=== PATIENT | male | born 1995 | race Caucasian/White ===

== ENCOUNTER 2018-09-04 06:44 | Day surgery (SDC) | payer OTHER ==
[2018-09-04] VITALS (14 sets, daily range): BP systolic 110–132; BP diastolic 58–76; PULSE 70–86; RESP 11–31
[~2018-09-04] VITALS: Ht 182.9 cm; Wt 81.2 kg
[2018-09-04] MEDS ORDERED: CEFAZOLIN 1 GM INJ ONE (07:00)
[2018-09-04] MEDS ORDERED: FENTAnyl 50 MCG/ML VIAL ONE (08:06)
[2018-09-04] MEDS ORDERED: MIDAZOLAM 1 MG/ML 2 ML INJ ONE (08:06)
[2018-09-04] MEDS ORDERED: PROPOFOL 40 ML ONE (08:06)
[2018-09-04] MEDS ORDERED: DEXAMETHASONE 4 MG/ML 1 ML INJ ONE (08:06)
[2018-09-04] MEDS ORDERED: ONDANSETRON 4 MG INJ ONE (08:06)
[2018-09-04] MEDS ORDERED: FAMOTIDINE 20 MG INJ ONE (08:07)
--- NOTE | 2018-09-04 08:19 | HPN ---
Date/Time of Note Date/Time of Note DATE: 09/04/18 TIME: 08:19 Interval H&P Admission Note Pt. seen H&P reviewed: No system changes ALEXX STEWART MD Sep 04, 2018 08:19
--- NOTE | 2018-09-04 08:43 | PREAC ---
Date/Time of Note Date/Time of Note DATE: 09/04/18 TIME: 08:41 Anesthesia Eval and Record Evaluation Time Pre-Procedure Interview DATE: 09/04/18 TIME: 08:41 Age 22 Sex male NPO: 8 hrs Preoperative diagnosis mass L posterior neck Planned procedure excision of L posterior neck mass Past Medical History Past Medical History: Includes Pulm: Smoking Hx (10-15 cigarettes/day x5 yrs) Surgery & Anesthesia Issues No known issue Meds Anticoagulation: No Beta Izabela within 24 hr: No Reason Beta Izabela not given: Pt. not on B-Izabela No Active Prescriptions or Reported Meds Meds reviewed: Yes Allergies Coded Allergies: No Known Allergy (Unverified , 09/04/18) Allergies Reviewed: Yes Labs/Studies Labs Reviewed: Reviewed by anesthesiologist test: N/A Pre-procedure Exam Last vitals Vital Signs Date Temp Pulse Resp B/P (MAP) Pulse Ox O2 O2 Flow FiO2 Time Delivery Rate 09/04/18 97.3 86 18 118/65 99 Room Air 07:30 (82) Airway: Adequate mouth opening, Adequate thyromental dist Mallampati: Mallampati II Teeth: Normal Lung: Normal Heart: Normal ASA Physical Status ASA physical status: 2 Emergency: None Planned Anesthetic General/MAC: LMA Pre-operative Attestations Prior to commencing anesthesia and surgery, the patient was re-evaluated, there was verification of: *The patient's identity *The results of appropriate recent lab work and preoperative vital signs *The above evaluation not changing prior to induction *Anesthetic plan, risk benefits, alternative and complications discussed with patient/family; questions answered; patient/family understands, accepts and wishes to proceed. DALY CHAPPELL Sep 04, 2018 08:43
[2018-09-04] MEDS ORDERED: FENTAnyl 50 MCG/ML VIAL IV PRN ×2 (09:00)
[2018-09-04] MEDS ORDERED: ONDANSETRON 4 MG INJ IV PRN ×2 (09:00→10:00)
[2018-09-04] MEDS ORDERED: HYDROmorphONE 1 MG/5 ML IV SYRINGE IV PRN ×2 (09:00)
[2018-09-04] MEDS ORDERED: ALBUTEROL 0.083% (NEB) 2.5 MG/3 ML AMP HHN PRN (09:00)
[2018-09-04] MEDS ORDERED: morphine (1 MG/ML) 10ML SYRINGE IV PRN ×2 (09:00)
[2018-09-04] MEDS ORDERED: LABETALOL HCL 20MG INJ IV PRN (09:00)
[2018-09-04] MEDS ORDERED: OXYCODONE/ACETAMINOPHEN (5/325) TAB PO PRN ×4 (09:00→10:00)
[2018-09-04] MEDS ORDERED: MEPERIDINE 25 MG INJ IV PRN (09:00)
[2018-09-04] MEDS ORDERED: DIPHENHYDRAMINE 50 MG INJ IV PRN (09:00)
[2018-09-04] MEDS ORDERED: BUPIVACAINE 0.25%/EPI (SDV) 10 ML INJ INJ ONE (09:15)
[2018-09-04] MEDS ORDERED: KETOROLAC 30 MG INJ ONE (09:27)
--- NOTE | 2018-09-04 09:40 | OPR ---
Date/Time of Note Date/Time of Note DATE: 09/04/18 TIME: 09:38 Operative Report Procedure Date: Sep 04, 2018 Preoperative Diagnosis Left posterior cervical adenopathy Postoperative Diagnosis Pathology pending Operation/Procedure Performed Excisional biopsy lymph node left posterior neck Surgeon Alexx Schmidt MD [employer] None Anesthesia Type: general Anesthesiologist: DALY CHAPPELL Estimated Blood Loss: minimal Transfusion none Specimen Lymph node left posterior neck Grafts/Implants none Tubes/Drains None Complications none Pt Condition Post Procedure: stable Disposition: PACU Indications Lymphadenopathy Procedure Description After satisfactory general anesthesia was achieved, the left posterior neck was prepped and draped. A 2 cm oblique skin incision was made in the skin crease and carried down to subcutaneous tissues. The node was in the immediate subcutaneous tissues and was able to be dissected out in its entirety using gentle blunt dissection. The lymph node was delivered and submitted. No structures in the neck were or cauterized. Hemostasis was excellent. The subcu was closed with interrupted 3-0 Vicryl. The skin closed with running 4-0 subcuticular Monocryl and Dermabond. Sponge and needle counts were reported as correct x2. ALEXX SCHMIDT MD Sep 04, 2018 09:40
[2018-09-04] MEDS ORDERED: morphine 2 MG INJ IV PRN (10:00)
--- NOTE | 2018-09-04 10:01 | PAC ---
Date/Time of Note Date/Time of Note DATE: 09/04/18 TIME: 10:01 Post-Anesthesia Notes Post-Anesthesia Note Last documented vital signs Vital Signs Date Temp Pulse Resp B/P (MAP) Pulse Ox O2 O2 Flow FiO2 Time Delivery Rate 09/04/18 97.3 86 18 118/65 99 Room Air 07:30 (82) Activity: WNL Respiratory function: WNL Cardiovascular function: WNL Mental status: Baseline Pain reasonably controlled: Yes Hydration appropriate: Yes Nausea/Vomiting absent: Yes DALY CHAPPELL Sep 04, 2018 10:01
--- NOTE | 2018-09-04 11:01 | NUR ---
PACU TRANSFERRED TO [facility] IN STABLE COND. SP LEFT NECK MASS EXCISION. DERMA HAJI INTACT. PAIN 11/02 PER PT. REPORT GIVEN TO RUPA SPENCE. Addendum: 09/04/18 at 1228 by SUNIL CORDON RN Amended: Links added.
--- NOTE | 2018-09-04 11:15 | NUR ---
THE PT ALERT AND ORIENTED VITAL SIGNS WITHIN NORMAL LIMITS, NO PAIN OR DISCOMFORT REPORTED D/C INSTRUCTIONS PROVIDED TO PT AND FAMILY, VERBALIZED UNDERSTANDING AND READINESS TO GO HOME INCISION SITE: DRY CLEAN AND INTACT
== END 2018-09-04 11:17 | disposition home or self-care (01) ==
LOC: SDS 06:44
PROVIDERS: ATTEND Surgery
DX: C85.11 Unspecified B-cell lymphoma, lymph nodes of head, face, and neck (principal)
CPT/HCPCS: 38500; 88307; 88341; 88342; J0690; J1100; J1885; J2250; J2405; J3010; Z7512; Z7610